=== PATIENT | male | born 1990 | race Caucasian/White ===

== ENCOUNTER 2019-09-20 02:01 | Emergency (ER) | payer BC, MEDICAID ==
[~2019-09-20] VITALS: Ht 172.7 cm; Wt 68.0 kg
[2019-09-20 04:39] VITALS: BP 118/74
== END 2019-09-20 05:10 | disposition home or self-care (01) ==
LOC: ER 02:09
DX: S00.211A Abrasion of right eyelid and periocular area, initial encounter (principal); F10.10 Alcohol abuse, uncomplicated; F12.10 Cannabis abuse, uncomplicated; F41.9 Anxiety disorder, unspecified; R00.0 Tachycardia, unspecified; W18.30XA Fall on same level, unspecified, initial encounter; Y93.89 Activity, other specified; Y92.89 Other specified places as the place of occurrence of the external cause; Y99.8 Other external cause status; Y90.9 Presence of alcohol in blood, level not specified
CPT/HCPCS: 93005; 99283

== ENCOUNTER 2022-08-26 15:28 | Inpatient (IN) | payer BC, MEDICAID ==
[~2022-08-26] VITALS: Ht 180.3 cm; Wt 72.6 kg
[2022-08-26] MEDS ORDERED: FOLIC ACID 1 MG, THIAMINE HCL 100 MG, MVI, ADULT NO.1 10 ML in DEXTROSE 5% WATER 1,000 ML IV ONE ×4 (16:00)
[2022-08-26] MEDS ORDERED: LORAZEPAM 2MG/ML CPJ IV NR (16:00)
[2022-08-26] MEDS ORDERED: SODIUM CHLORIDE 0.9% 1,000 ML IV ONE (16:00)
[2022-08-26] MEDS ORDERED: LORAZEPAM 2MG/ML CPJ IV ONE (16:00)
[2022-08-26 16:50] LABS: HEMATOCRIT. 41.7 % (42.0-52.0); HEMOGLOBIN. 14.1 g/dL (14.0-18.0); MEAN CORPUSCULAR HEMOGLOBIN 31.5 pg (28.0-32.0); MEAN PLATELET VOLUME 7.7 fl (7.4-10.4); PLATELET 458 x1000/uL (130-400); RED BLOOD CELL COUNT 4.49 mill/uL (4.7-6.1); RED CELL DISTRIBUTION WIDTH 13.7 % (11.6-14.6)
[2022-08-26 16:54] LABS: CHLORIDE 93 mEq/L (98-107)
[2022-08-26 17:05] LABS: PROTHROMBIN TIME 11.2 sec (9.6-11.0)
[2022-08-26 17:07] LABS: ETHANOL BLOOD < 10 mg/dL
[2022-08-26 17:11] LABS: PHOSPHORUS 0.6 mg/dL (2.5-4.9)
[2022-08-26 17:38] LABS: CLARITY URINE CLEAR (CLEAR); COLOR URINE YELLOW (YELLOW); KETONES URINE 4+ (NEGATIVE); LEUKOCYTE ESTERASE URINE NEGATIVE (NEGATIVE); NITRITE URINE NEGATIVE (NEGATIVE); OCCULT BLOOD URINE NEGATIVE (NEGATIVE); PH URINE >=9.0 (4.5-8.0); PROTEIN URINE 2+ (NEGATIVE); SPECIFIC GRAVITY URINE 1.021 (1.005-1.030)
[2022-08-26 18:06] LABS: *AMPHETAMINES SCREEN URINE NEGATIVE (NEGATIVE); *BARBITURATES SCREEN URINE NEGATIVE (NEGATIVE); *BENZODIAZEPINES SCREEN URINE NEGATIVE (NEGATIVE); *COCAINE SCREEN URINE NEGATIVE (NEGATIVE); CANNABINOID URINE SCREEN PRESUMTIVE POSITIVE (NEGATIVE); METHADONE URINE SCREEN NEGATIVE (NEGATIVE); OPIATES URINE SCREEN NEGATIVE (NEGATIVE); PHENCYCLIDINE URINE SCREEN NEGATIVE (NEGATIVE)
[2022-08-26] MEDS ORDERED: MAGNESIUM 2 G PREMIX 50 ML IV NR (18:30)
[2022-08-26] MEDS ORDERED: POTASSIUM CHLORIDE 20MEQ TABLET SR PO NR (18:30)
[2022-08-26] MEDS ORDERED: SODIUM PHOS,M-BASIC-D-BASIC 30 MM in DEXT 5% WATER 500 ML IV NR (20:00)
[2022-08-26 22:38] VITALS: BP 135/82
[2022-08-26] MEDS ORDERED: LORAZEPAM 2MG/ML CPJ IV PRN (23:30)
[2022-08-26 23:35] LABS: PLATELET ESTIMATE INCREASED
[2022-08-27] VITALS (10 sets, daily range): BP systolic 112–135; BP diastolic 73–87
[2022-08-27] MEDS: CHLORDIAZEPOXIDE 25MG CAPSULE PO SCH ×3 (05:58→21:56)
[2022-08-27 06:21] LABS: BASOPHILS % 0.5 % (0.0-2.0); EOSINOPHILS % 2.7 % (0.0-5.0); HEMATOCRIT. 38.3 % (42.0-52.0); HEMOGLOBIN. 13.5 g/dL (14.0-18.0); LYMPHOCYTES % 21.7 % (20.0-50.0); MEAN CORPUSCULAR HEMOGLOBIN 32.1 pg (28.0-32.0); MEAN CORPUSCULAR VOLUME 91.1 fL (80.0-94.0); MONOCYTES % 6.5 % (2.0-8.0); NEUTROPHILS % 68.6 % (40.0-76.0); PLATELET 363 x1000/uL (130-400); RED CELL DISTRIBUTION WIDTH 13.4 % (11.6-14.6)
[2022-08-27 06:29] LABS: CHLORIDE 99 mEq/L (98-107)
[2022-08-27 06:33] LABS: PHOSPHORUS 2.6 mg/dL (2.5-4.9)
[2022-08-27 07:44] LABS: HEPATITIS B SURFACE ANTIGEN NEGATIVE
[2022-08-27] MEDS: ENOXAPARIN 40MG/0.4ML SYR SUBCUT SCH (09:18)
[2022-08-27] MEDS ORDERED: POTASSIUM CHLORIDE 20MEQ TABLET SR PO NR (12:30)
[2022-08-27] MEDS: FOLIC ACID 1 MG, THIAMINE HCL 100 MG, MVI, ADULT NO.1 10 ML in DEXTROSE 5% WATER 1,000 ML IV SCH ×4 (15:59)
[2022-08-27] MEDS ORDERED: CEFTRIAXONE 1,000 MG in DEXTROSE 5% WATER 50 ML IV SCH ×3 (20:00)
[2022-08-28] VITALS (8 sets, daily range): BP systolic 114–128; BP diastolic 74–81
[2022-08-28] MEDS: CHLORDIAZEPOXIDE 25MG CAPSULE PO SCH ×2 (06:09→13:08)
[2022-08-28 08:04] LABS: BASOPHILS % 0.7 % (0.0-2.0); EOSINOPHILS % 4.6 % (0.0-5.0); HEMOGLOBIN. 13.8 g/dL (14.0-18.0); MEAN CORPUSCULAR HEMOGLOBIN 32.7 pg (28.0-32.0); MEAN CORPUSCULAR VOLUME 92.5 fL (80.0-94.0); MEAN PLATELET VOLUME 8.5 fl (7.4-10.4); MONOCYTES % 5.2 % (2.0-8.0); NEUTROPHILS % 61.5 % (40.0-76.0); PLATELET 339 x1000/uL (130-400); RED BLOOD CELL COUNT 4.22 mill/uL (4.7-6.1); RED CELL DISTRIBUTION WIDTH 13.1 % (11.6-14.6)
[2022-08-28 08:29] LABS: CHLORIDE 104 mEq/L (98-107)
[2022-08-28] MEDS: ENOXAPARIN 40MG/0.4ML SYR SUBCUT SCH (08:36)
[2022-08-28] MEDS ORDERED: POTASSIUM CHLORIDE 20MEQ TABLET SR PO NR (08:44)
[2022-08-28] MEDS ORDERED: THIA100T72 MT (16:12)
[2022-08-28] MEDS: FOLIC ACID 1 MG, THIAMINE HCL 100 MG, MVI, ADULT NO.1 10 ML in DEXTROSE 5% WATER 1,000 ML IV SCH ×4 (16:13)
[2022-08-28] MEDS ORDERED: DOCU-138 MT (16:18)
== END 2022-08-28 23:06 | disposition home or self-care (01) | DRG 423 ==
LOC: ER 15:28 → 3WST 18:28 → EDBEDREQ 18:31
PROVIDERS: ADMIT Internal Medicine; ATTEND Internal Medicine
DX: E83.39 Other disorders of phosphorus metabolism (principal); F10.20 Alcohol dependence, uncomplicated; E83.42 Hypomagnesemia; F17.200 Nicotine dependence, unspecified, uncomplicated
CPT/HCPCS: 36415; 80048; 80053; 80305; 80320; 81003; 83735; 84100; 85025; 86803; 87340; 99285; J0696; J1650; J2060; J3411; J3475; J3490; J7030; J7060; J7070; G0480

== ENCOUNTER 2022-10-15 10:39 | Emergency (ER) | payer MEDICAID, OTHER ==
[~2022-10-15] VITALS: Ht 180.3 cm; Wt 72.6 kg
[~2022-10-15 10:39] MED LIST: DOCU-138 MT; THIA100T72 MT
[2022-10-15 11:35] LABS: BASOPHILS % 0.8 % (0.0-2.0); EOSINOPHILS % 3.3 % (0.0-5.0); HEMOGLOBIN. 15.7 g/dL (14.0-18.0); MEAN CORPUSCULAR HEMOGLOBIN 31.5 pg (28.0-32.0); MEAN CORPUSCULAR VOLUME 90.4 fL (80.0-94.0); MEAN PLATELET VOLUME 7.9 fl (7.4-10.4); MONOCYTES % 2.7 % (2.0-8.0); NEUTROPHILS % 68.2 % (40.0-76.0); PLATELET 402 x1000/uL (130-400); RED BLOOD CELL COUNT 4.98 mill/uL (4.7-6.1); RED CELL DISTRIBUTION WIDTH 13.1 % (11.6-14.6)
[2022-10-15 12:02] LABS: CHLORIDE 100 mEq/L (98-107)
[2022-10-15 18:01] LABS: CLARITY URINE CLOUDY (CLEAR); COLOR URINE DARK YELLOW (YELLOW); KETONES URINE 2+ (NEGATIVE); LEUKOCYTE ESTERASE URINE NEGATIVE (NEGATIVE); NITRITE URINE NEGATIVE (NEGATIVE); OCCULT BLOOD URINE NEGATIVE (NEGATIVE); PH URINE 5.5 (4.5-8.0); PROTEIN URINE 2+ (NEGATIVE)
[2022-10-15] MEDS ORDERED: MORPHINE SULFATE 4 MG/ML CPJ (NOT FOR IM USE) IV NR (18:03)
[2022-10-15] MEDS ORDERED: ONDANSETRON HCL 4MG/2ML INJ IV NR (18:03)
[2022-10-15] MEDS ORDERED: VISCOUS LIDOCAINE 2% 15 ML UDC PO NR (18:03)
[2022-10-15] MEDS ORDERED: PANTOPRAZOLE SODIUM 40 MG/VIAL IV NR (18:03)
[2022-10-15] MEDS ORDERED: MAGNESIUM/ALUMINUM HYDROXIDE/SIMETHICONE 30ML UDC PO NR (18:03)
[2022-10-15] MEDS ORDERED: SODIUM CHLORIDE 0.9% 1,000 ML IV ONE (18:15)
[2022-10-15] MEDS ORDERED: PROT40 MT (19:54)
[2022-10-15 21:00] VITALS: BP 125/75
== END 2022-10-15 21:13 | disposition home or self-care (01) ==
LOC: ER 12:41
DX: K29.20 Alcoholic gastritis without bleeding (principal); R11.2 Nausea with vomiting, unspecified; F12.90 Cannabis use, unspecified, uncomplicated; Y90.9 Presence of alcohol in blood, level not specified
CPT/HCPCS: 36415; 76705; 80053; 81003; 83690; 85025; 93005; 96361; 96374; 96375; 99285; C9113; J2270; J2405; Z7610